=== PATIENT | female | born 1955 | race African-American/Black ===

== ENCOUNTER → 2017-01-09 | Outpatient (CLI) | payer OTHER ==
--- NOTE | 2017-01-09 10:48 | RAD ---
DATE: 01/09/2017. EXAM: DIGITAL SCREEN BILAT W/CAD. HISTORY: Routine mammographic screening. COMPARISON: 09/06/2015. This study was interpreted with the benefit of Computerized Aided Detection (CAD). FINDINGS: The breast parenchyma is primarily fatty replaced. There are no suspicious masses, microcalcifications or architectural distortion. Scattered calcifications are stable and benign. BI-RADS CATEGORY: 2 BENIGN FINDING(S). RECOMMENDED FOLLOW-UP: 12M 12 MONTH FOLLOW-UP. PQRS compliance statement: Patient information was entered into a reminder system with a target due date 01/09/2018 for the next mammogram. Mammography is a sensitive method for finding small breast cancers, but it does not detect them all and is not a substitute for careful clinical examination. A negative mammogram does not negate a clinically suspicious finding and should not result in delay in biopsying a clinically suspicious abnormality. "Our facility is accredited by the [employer] Mammography [employer]."
== END | disposition home or self-care (01) ==
LOC: MAMMO 08:55
PROVIDERS: ATTEND Internal Medicine
DX: Z12.31 Encounter for screening mammogram for malignant neoplasm of breast (principal)
CPT/HCPCS: G0202; 77067

== ENCOUNTER → 2018-05-02 | Outpatient (CLI) | payer OTHER | END | disposition home or self-care (01) | LOC: MAMMO 08:07 | DX: Z12.31 Encounter for screening mammogram for malignant neoplasm of breast (principal) | CPT/HCPCS: 77067 ==

== ENCOUNTER → 2019-07-28 | Outpatient (CLI) | payer OTHER ==
--- NOTE | 2019-07-28 17:01 | RAD ---
DATE: 07/28/2019 EXAM: MAMMO STACEY SCREENING BILATERAL HISTORY: Routine screening COMPARISON: 09/06/2015, 01/09/2017, 05/02/2018 mammographic exams This study was interpreted with the benefit of Computerized Aided Detection (CAD). Breast Density: FATTY The breast parenchyma is primarily fatty replaced. Breast parenchyma level density A. FINDINGS: No suspicious calcification, masses, or distortion. IMPRESSION: Stable BI-RADS CATEGORY: 1 NEGATIVE RECOMMENDED FOLLOW-UP: 12M 12 MONTH FOLLOW-UP PQRS compliance statement: Patient information was entered into a reminder system with a target due date in one year for the next mammogram. Mammography is a sensitive method for finding small breast cancers, but it does not detect them all and is not a substitute for careful clinical examination. A negative mammogram does not negate a clinically suspicious finding and should not result in delay in biopsying a clinically suspicious abnormality. "Our facility is accredited by the [employer] Mammography [employer]."
== END | disposition home or self-care (01) ==
LOC: MAMMO 08:25
PROVIDERS: ATTEND Internal Medicine
DX: Z12.31 Encounter for screening mammogram for malignant neoplasm of breast (principal)
CPT/HCPCS: 77063; 77067

== ENCOUNTER → 2020-09-21 | Outpatient (CLI) | payer OTHER, MEDICARE ==
--- NOTE | 2020-09-21 10:20 | RAD ---
EXAM: Bilateral screening mammogram. HISTORY: 65-year-old female presents for screening mammography. TECHNIQUE: Full-field digital craniocaudal and mediolateral oblique views of both breasts are obtained for evaluation. Computer aided detection was not applied. COMPARISON: 07/28/2019 BREAST PARENCHYMAL DENSITY: Level A - Mostly fat. FINDINGS: There is no new suspicious mass, microcalcification or region of architectural distortion. IMPRESSION: BI-RADS Category 2: Benign finding(s). RECOMMENDATION: Annual mammography is recommended. If your mammogram demonstrates that you have dense breast tissue, which could hide abnormalities, and if you have other risk factors for breast cancer that have been identified, you might benefit from supplemental screening tests that may be suggested by your ordering physician. Dense breast tissue, in and of itself, is a relatively common condition. This information is not provided to cause undue concern, but rather to raise your awareness and to promote discussion with your physician regarding the presence of other risk factors, in addition to dense breast tissue. A report of your mammography results will be sent to you and your physician. You should contact your physician if you have any questions or concerns regarding this report. Mammography is a sensitive method for finding small breast cancers, but it does not detect them all and is not a substitute for careful clinical examination. A negative mammogram does not negate a clinically suspicious finding and should not result in delay in biopsying a clinically suspicious abnormality. PQRS compliance statement - Patient information was entered into a reminder system with a target due date for the next mammogram. "Our facility is accredited by the [employer] Mammography [employer]." Electronically signed by: Aditi Krause MD (09/21/2020 10:17 AM) [id number]
== END ==
LOC: MAMMO 08:37
PROVIDERS: ATTEND Internal Medicine
DX: Z12.31 Encounter for screening mammogram for malignant neoplasm of breast (principal)
CPT/HCPCS: 77067

== ENCOUNTER 2021-03-01 16:55 | Emergency (ER) | payer MEDICARE, OTHER ==
[~2021-03-01] VITALS: Ht 160 cm; Wt 121.4 kg
[2021-03-01 17:05] VITALS: BP 165/93
[2021-03-01] MEDS ORDERED: BACITRACIN TOPICAL OINT PACKET. TP ONE (17:45)
[2021-03-01] MEDS ORDERED: MUPIROCIN 2 % TOPICAL CREAM 30GM TUBE. TP ONE (18:00)
[2021-03-01] MEDS ORDERED: HYDR-2763 PO ×3 (18:40→18:47)
[2021-03-01] MEDS ORDERED: BACI28.34 TP (18:44)
[2021-03-01] MEDS ORDERED: MORPHINE SULFATE 10 MG/ML VIAL. IM ONE (18:45)
--- NOTE | 2021-03-01 18:47 | ED.ADGEN ---
Past Medical History Past Medical History: Hypertension, Other Additional Past Medical Histor: POLIO, borderline diabetes Past Surgical History: , Other Additional Past Surgical Histo: LT KNEE REPLACEMENT Smoking Status: Never Smoker Alcohol Use: None General Adult EDM: Chief Complaint: BURN/SMOKE INHALATION HPI: HPI: Patient is a 66 year old AA female who presents emergency department with complaints of a burn with blistering to her left anterior and medial thigh. Patient states she was boiling shrimp when she dropped a boiling water onto her leg. Patient reports that the injury happened approximately 2 hours prior to arrival. She states that her last tetanus shot was approximately 1 year ago. She currently rates the pain a 5 out of 10 on the pain scale she denies any alleviating or exacerbating factors. Review of Systems: Review of Systems: Complete ROS is negative unless otherwise noted in HPI. Current Medications: Current Medications Medications (Trade) Dose Ordered Sig/Nataliya Start Time Stop Time Status Last Admin Dose Admin Bacitracin (Bacitracin Zinc Oint Pkt) 3 pkt 1X ONCE 03/01/21 17:45 03/01/21 17:46 DC Morphine Sulfate (Morphine Sulfate) 5 mg 1X ONCE 03/01/21 18:45 03/01/21 18:46 DC 03/01/21 18:40 5 MG Mupirocin (Bactroban) 1 robby 1X ONCE 03/01/21 18:00 03/01/21 18:01 DC 03/01/21 18:40 1 ROBBY Ondansetron HCl (Zofran Odt) 4 mg STK-MED ONCE 03/01/21 19:07 03/01/21 19:08 DC Allergies: Allergies: Allergies Coded Allergies Type Severity Reaction Last Updated Verified No Known Drug Allergies 03/01/21 No Physical Exam: PE: See Above Constitutional: Well developed, well nourished, no acute distress, non-toxic appearance, obese. [] HENT: Normocephalic, atraumatic, bilateral external ears normal, nose normal. [] Eyes: PERRLA, EOMI, conjunctiva normal, no discharge. [] Neck: Normal range of motion, no stridor. [] Cardiovascular:Heart rate regular rhythm Lungs & Thorax: Respirations even and unlabored, no retractions, no respiratory distress Skin: Warm, dry, no erythema, no rash; 30 cm x 16 cm erythemic area with blistering consistent with second-degree burn noted to the anterior and medial left thigh,. [] Extremities: No cyanosis, cap refill less than 2 Neurologic: Alert and oriented X 3, sensation intact, no focal deficits noted. [] Psychologic: Affect normal, judgement normal, mood normal. [] Current Patient Data: Vital Signs: Vital Signs Date Time Temp Pulse Resp B/P (MAP) Pulse Ox O2 Delivery O2 Flow Rate FiO2 03/01/21 18:40 Room Air 03/01/21 17:05 97.7 105 18 165/93 (117) 100 97.7 EKG: EKG: [] Heart Score: C/O Chest Pain: No Risk Scores: Score 0 - 3: 2.5% MACE over next 6 weeks - Discharge Home Score 4 - 6: 20.3% MACE over next 6 weeks - Admit for Clinical Observation Score 7 - 10: 72.7% MACE over next 6 weeks - Early Invasive Strategies Radiology/Procedures: Radiology/Procedures: [] Course & Med Decision Making: Course & Med Decision Making Pertinent Labs and Imaging studies reviewed. (See chart for details) [] Dragon Disclaimer: Dragon Disclaimer: This electronic medical record was generated, in whole or in part, using a voice recognition dictation system. Departure Departure Impression: Primary Impression: Burn of second degree of left thigh, initial encounter Disposition: 01 HOME / SELF CARE / HOMELESS Condition: STABLE Referrals: SARA PETER MD (PCP) Patient Instructions: Second-Degree Burn Additional Instructions: Fill the prescriptions and take them as directed. Leave the dressing that was applied in place until follow-up appointment with burn center, call [phone] to schedule an appointment. Return to the ER if your symptoms worsen or fever develops. Scripts Ondansetron (ONDANSETRON ODT) 4 Mg Tab.rapdis 1 TAB PO PRN Q6-8HRS PRN for NAUSEA/VOMITING for 4 Days, #16 TAB 0 Refills Prov: YASIR CESPEDES APRN 03/01/21 Hydrocodone/Acetaminophen (Hydrocodone-Acetamin 7.5-325) 1 Each Tablet 1 EACH PO QID PRN for P for 3 Days, #12 TAB 0 Refills Prov: YASIR CESPEDES APRN 03/01/21 Bacitracin/Polymyxin B Sulfate (POLYSPORIN TOPICAL OINT) 28.3 Gm Oint...g. 1 ROBBY TP BID for WOUND CARE for 7 Days, #1 TUBE 0 Refills DIRECTED BY PHYSICIAN Prov: YASIR CESPEDES APRN 03/01/21 YASIR CESPEDES CONDUIT WORKER Mar 01, 2021 18:47
[2021-03-01] MEDS ORDERED: ONDANSETRON ODT 4 MG TAB.RAPDIS. ONE (19:07)
[2021-03-01] MEDS ORDERED: ONDANSETRON ODT 4 MG TAB.RAPDIS. PO ONE (19:15)
[2021-03-01] MEDS ORDERED: ONDA4TAB12 PO (19:20)
== END 2021-03-01 19:23 | disposition home or self-care (01) ==
LOC: ER 16:55
DX: T24.211A Burn of second degree of right thigh, initial encounter (principal); I10 Essential (primary) hypertension; X12.XXXA Contact with other hot fluids, initial encounter; Y93.89 Activity, other specified; Y92.89 Other specified places as the place of occurrence of the external cause; Y99.8 Other external cause status
CPT/HCPCS: 16020; 96372; 99283; J2270

== ENCOUNTER → 2021-07-18 | Day surgery (SDC) | payer MEDICARE, OTHER ==
[~2021-07-18] VITALS: Ht 160 cm; Wt 140.0 kg
[~2021-07-18] MED LIST: AMLO-187 PO; ASPI-630 PO; ATOR10TA60 PO; BACI28.34 TP; CLON0.2T PO; HYDR-2763 PO; HYDR12.58 PO; IV RINGERS,LACTATED 1000ML 1,000 ML IV SCH; LANS30CA PO; LIDOCAINE 2% PF 5 ML VIAL. ONE; METF500T16 PO; METO-247 PO; ONDA4TAB12 PO; POTA20TA4 PO; PROPOFOL 10 MG/ML (20ML) VIAL. IV ONE; SUCR1TAB PO
[2021-07-18 12:49] VITALS: BP 158/72
--- NOTE | 2021-07-18 13:57 | PDOC4 ---
PROCEDURE Procedure Colonoscopy Indication: screening, last 10 years ago. Meds: per anesthesia. Findings: HINA--normal --'Scope advanced to cecum. Prep adequate. Mucosa normal. No tics, polyps, etc. IH's on retroflex. Caitie. well. IMP: IH's, otherwise normal exam. REC: Consider repeat exam in 10 years. Resume home meds, diet. F/u with me prn. CONCHITA CANTU MD Jul 18, 2021 13:57
[2021-07-18 14:12] VITALS: BP 121/66
== END | disposition home or self-care (01) ==
LOC: ENDOS 11:58
PROVIDERS: ATTEND Internal Medicine Gastroenterology
DX: Z12.11 Encounter for screening for malignant neoplasm of colon (principal); K64.0 First degree hemorrhoids; K63.89 Other specified diseases of intestine; I10 Essential (primary) hypertension; E11.9 Type 2 diabetes mellitus without complications; Z79.82 Long term (current) use of aspirin; Z79.84 Long term (current) use of oral hypoglycemic drugs; Z79.899 Other long term (current) drug therapy; Z98.890 Other specified postprocedural states
CPT/HCPCS: G0121; J2704; 45378

== ENCOUNTER → 2022-01-19 | Outpatient (CLI) | payer MEDICARE, OTHER ==
[2021-07-18 14:12] VITALS: BP 121/66
[~2022-01-19] MED LIST changes: -IV RINGERS,LACTATED 1000ML 1,000 ML IV SCH; -LIDOCAINE 2% PF 5 ML VIAL. ONE; -PROPOFOL 10 MG/ML (20ML) VIAL. IV ONE
--- NOTE | 2022-01-19 10:15 | RAD ---
INDICATION : Routine Screening. COMPARISON: Priors including September 2020 TECHNIQUE: Standard mammogram screening views of the bilateral breasts were obtained. CAD was utilize d. FINDINGS: The breasts are fatty density. No definite suspicious mass. IMPRESSION: BI-RADS Category 1: Negative. Recommend repeat screening examination in one year. The patient was placed into the recall system with a suggested recall date for follow up imaging. Mammography is the most sensitive method for finding small breast cancers, but it does not detect the m all and is not a substitute for careful clinical examination. A negative mammogram does not negate a clinically suspicious finding and should not result in delay in biopsying a clinically suspicious abnormality. Electronically signed by: Gael Bay MD (01/19/2022 10:13 AM) [id number]
== END ==
LOC: MAMMO 08:57
PROVIDERS: ATTEND Internal Medicine
DX: Z12.31 Encounter for screening mammogram for malignant neoplasm of breast (principal)
CPT/HCPCS: 77067